=== PATIENT | male | born 1990 | race African-American/Black ===

== ENCOUNTER 2024-10-05 23:05 | Emergency (ER) | payer SELFPAY ==
[~2024-10-05] VITALS: Ht 175.3 cm; Wt 77.0 kg
[2024-10-05 23:46] VITALS: TEMP 98.1; O2SAT 100
[2024-10-06 01:12] LABS: BASOPHILS % 2.4 % (0.0-2.0); EOSINOPHILS % 1.8 % (0.0-5.0); HEMATOCRIT. 37.3 % (42.0-52.0); HEMOGLOBIN. 12.5 g/dL (14.0-18.0); LYMPHOCYTES % 37.9 % (20.0-50.0); MEAN CORPUSCULAR HEMOGLOBIN 29.1 pg (28.0-32.0); MEAN CORPUSCULAR HGB CONC 33.5 g/dL (31.0-37.0); MEAN CORPUSCULAR VOLUME 86.8 fL (80.0-94.0); MEAN PLATELET VOLUME 6.8 fl (7.4-10.4); MONOCYTES % 10.1 % (2.0-8.0); NEUTROPHILS % 47.8 % (40.0-76.0); PLATELET 323 x1000/uL (130-400); RED CELL DISTRIBUTION WIDTH 15.3 % (11.6-14.6); WHITE BLOOD COUNT 5.5 x1000/uL (4.5-11.0)
[2024-10-06 01:22] LABS: CHLORIDE 106 mEq/L (98-107); POTASSIUM 3.8 mEq/L (3.5-5.1); SODIUM 144 mEq/L (136-145)
[2024-10-06 01:23] VITALS: BP 93/49; PULSE 70; RESP 18; O2SAT 98
[2024-10-06 01:23] LABS: CALCIUM 9.1 mg/dL (8.7-10.4); CARBON DIOXIDE 28 mEq/L (21-32)
[2024-10-06 01:28] LABS: CREATININE 0.7 mg/dL (0.6-1.3); GLUCOSE 98 mg/dL (70-105); UREA NITROGEN BLOOD 10 mg/dL (9-23)
[2024-10-06 01:49] LABS: ETHANOL BLOOD 405 mg/dL (<10)
== END 2024-10-06 05:08 | disposition home or self-care (01) ==
LOC: ER 23:05
DX: G92.8 Other toxic encephalopathy (principal); T51.0X1A Toxic effect of ethanol, accidental (unintentional), initial encounter; F10.129 Alcohol abuse with intoxication, unspecified; Y90.9 Presence of alcohol in blood, level not specified
CPT/HCPCS: 36415; 80048; 80320; 85025; 99283; 99284; G0480

== ENCOUNTER 2024-10-08 21:43 | Emergency (ER) | payer SELFPAY ==
[~2024-10-08] VITALS: Ht 170.2 cm; Wt 78.0 kg
[2024-10-08 21:50] VITALS: TEMP 97.5; O2SAT 99
[2024-10-08] MEDS ORDERED: MORPHINE SULFATE 4 MG/ML INJ (FOR IV/IM USE) IV STA (22:58)
[2024-10-08] MEDS: ONDANSETRON HCL 4MG/2ML INJ IV STA (22:58)
[2024-10-09 00:22] LABS: BASOPHILS % 0.9 % (0.0-2.0); EOSINOPHILS % 0.7 % (0.0-5.0); HEMATOCRIT. 36.3 % (42.0-52.0); HEMOGLOBIN. 12.1 g/dL (14.0-18.0); LYMPHOCYTES % 16.1 % (20.0-50.0); MEAN CORPUSCULAR HEMOGLOBIN 28.9 pg (28.0-32.0); MEAN CORPUSCULAR HGB CONC 33.2 g/dL (31.0-37.0); MEAN CORPUSCULAR VOLUME 87.1 fL (80.0-94.0); MEAN PLATELET VOLUME 7.1 fl (7.4-10.4); MONOCYTES % 12.1 % (2.0-8.0); NEUTROPHILS % 70.2 % (40.0-76.0); PLATELET 311 x1000/uL (130-400); RED BLOOD CELL COUNT 4.17 mill/uL (4.7-6.1); RED CELL DISTRIBUTION WIDTH 15.8 % (11.6-14.6); WHITE BLOOD COUNT 9.3 x1000/uL (4.5-11.0)
[2024-10-09 00:28] LABS: CHLORIDE 106 mEq/L (98-107); POTASSIUM 3.9 mEq/L (3.5-5.1); SODIUM 141 mEq/L (136-145)
[2024-10-09 00:29] LABS: CARBON DIOXIDE 24 mEq/L (21-32)
[2024-10-09 00:30] LABS: CALCIUM 9.2 mg/dL (8.7-10.4)
[2024-10-09 00:35] LABS: CREATININE 0.7 mg/dL (0.6-1.3); GLUCOSE 100 mg/dL (70-105); UREA NITROGEN BLOOD 5 mg/dL (9-23)
[2024-10-09] MEDS: ONDANSETRON HCL 4MG/2ML INJ IV NR (01:22)
[2024-10-09] MEDS: MORPHINE SULFATE 4 MG/ML INJ (FOR IV/IM USE) IV NR (01:22)
[2024-10-09 03:06] VITALS: BP 129/78; PULSE 80; RESP 18; O2SAT 98
[2024-10-09] MEDS ORDERED: IBUP-2029 MT (05:55)
[2024-10-09] MEDS ORDERED: PENI500T MT (05:55)
[2024-10-09] MEDS ORDERED: IOHEXOL-300 100 ML BOTTLE ONE (07:20)
== END 2024-10-09 06:25 | disposition home or self-care (01) ==
LOC: ER 21:43
DX: S02.40FA Zygomatic fracture, left side, initial encounter for closed fracture (principal); S09.90XA Unspecified injury of head, initial encounter; Y99.8 Other external cause status; F10.90 Alcohol use, unspecified, uncomplicated; K00.0 Anodontia; Y90.9 Presence of alcohol in blood, level not specified; Y08.89XA Assault by other specified means, initial encounter; Y93.89 Activity, other specified; Y92.89 Other specified places as the place of occurrence of the external cause
CPT/HCPCS: 99285; 71045; 80048; 85025; 86850; 86900; 86901; 36415; 70450; 96374; 96375; 70486; 72125; 74177; Q9967; J2405; J2270